=== PATIENT | female | born 1960 | race African-American/Black ===

== ENCOUNTER 2018-08-09 12:59 | Inpatient (IN) | payer OTHER ==
--- NOTE | 2018-08-09 14:04 | ED ---
Chest Pain HPI - General Chief Complaint: Chest Pain Stated Complaint: Chest pressure Time Seen by Provider: 08/09/18 13:33 Source: patient, RN notes reviewed, old records reviewed Mode of arrival: ambulatory Limitations: no limitations - History of Present Illness Initial Comments: This is a 57-year-old female the ER for evaluation presents again with today with chest pain. Positive history of CAD with stent placement. Patient states she has had persistent chest pain today and the chest pain is been on and off for 5 days. Patient's chest pain is persisted. Patient has history of CAD. Currently patient is recent travel history no sick contacts no cough or congestion. She does have similar pain to prior heart disease. No recent cardiac evaluation. MD Complaint: chest pain -: days(s) (5) Pain Location: left chest Pain Radiation: LUE Severity: mild Severity scale (1-10): 2 Quality: aching Consistency: constant Improves With: nothing Worsens With: nothing Anginal Symptoms: diaphoresis, dyspnea Treatments Prior to Arrival: none - Related Data Home Medications Medication Instructions Recorded Confirmed Aspirin EC [Ecotrin Low Dose] 81 mg PO DAILY 08/09/18 08/09/18 Atorvastatin [Lipitor] 80 mg PO DAILY 08/09/18 08/09/18 Losartan Potassium 100 mg PO DAILY 08/09/18 08/09/18 Previous Rx's Medication Instructions Recorded amLODIPine [Norvasc] 5 mg PO DAILY #30 tab 04/10/15 Allergies Allergy/AdvReac Type Severity Reaction Status Date / Time No Known Allergies Allergy Verified 08/09/18 13:43 Review of Systems ROS Statement: Those systems with pertinent positive or pertinent negative responses have been documented in the HPI. ROS Other: All systems not noted in ROS Statement are negative. EKG Findings - EKG Comments: EKG Findings:: EKG shows sinus bradycardia rate of 53, HI 160, QRS 76, QTc 388 Past Medical History Past Medical History: Coronary Artery Disease (CAD), Chest Pain / Angina, COPD, Hyperlipidemia, Hypertension, Myocardial Infarction ([place]) Last Myocardial Infarction Date:: 03/2015 History of Any Multi-Drug Resistant Organisms: None Reported Past Surgical History: Heart Catheterization With Stent, Tubal Ligation Additional Past Surgical History / Comment(s): Tubes tied, 1 cardiac stent is 2003, and R ankle FX Past Anesthesia/Blood Transfusion Reactions: No Reported Reaction Past Psychological History: No Psychological Hx Reported Smoking Status: Current every day smoker Past Alcohol Use History: None Reported, Occasional Past Drug Use History: Cocaine - Past Family History Father History Unknown: Yes Family Medical History: No Reported History, Unable to Obtain (Patient denies anything about her father) Mother Family Medical History: COPD, Hypertension, Osteoarthritis (OA) Daughter(s) Family Medical History: No Reported History (Patient had one daughter no major Problems.) General Exam Limitations: no limitations General appearance: alert, in no apparent distress Head exam: Present: atraumatic, normocephalic, normal inspection Eye exam: Present: normal appearance, PERRL, EOMI. Absent: scleral icterus, conjunctival injection, periorbital swelling ENT exam: Present: normal exam, mucous membranes moist Neck exam: Present: normal inspection. Absent: tenderness, meningismus, lymphadenopathy Respiratory exam: Present: normal lung sounds bilaterally. Absent: respiratory distress, wheezes, rales, rhonchi, stridor Cardiovascular Exam: Present: regular rate, normal rhythm, normal heart sounds. Absent: systolic murmur, diastolic murmur, rubs, gallop, clicks GI/Abdominal exam: Present: soft, normal bowel sounds. Absent: distended, tenderness, guarding, rebound, rigid Extremities exam: Present: normal inspection, full ROM, normal capillary refill. Absent: tenderness, pedal edema, joint swelling, calf tenderness Back exam: Present: normal inspection Neurological exam: Present: alert, oriented X3, CN II-XII intact Psychiatric exam: Present: normal affect, normal mood Skin exam: Present: warm, dry, intact, normal color. Absent: rash Course Vital Signs 08/09/18 13:07 Temperature 98.2 F Pulse Rate 62 Respiratory 18 Rate Blood Pressure 129/74 O2 Sat by Pulse 99 Oximetry - Reevaluation(s) Reevaluation #1: 08/09/18 15:44 Medical record is reviewed Reevaluation #2: 08/09/18 15:44 Patient does have persistent chest pain Chest Pain MDM - MDM 57 female the ER for evaluation positive chest pain positive CAD history. Patient be admitted for persistent cardiac evaluation. Critical Care Time Critical Care Time: Yes Total Critical Care Time: 31 Disposition Clinical Impression: Chest pain Disposition: ADMITTED IP TO THIS HOSP Condition: Undetermined Is patient prescribed a controlled substance at d/c from ED?: No Referrals: Gilbert Mann MD [Primary Care Provider] - 1-2 days
[2018-08-09 14:18] LABS: Basophils % (A) 1 %; Eosinophils # (A) 0.3 k/uL (0-0.7); Eosinophils % (A) 6 %; HGB 12.7 gm/dL (11.4-16.0); Lymphocytes # (A) 2.5 k/uL (1.0-4.8); Lymphocytes % (A) 46 %; MCH 29.7 pg (25.0-35.0); MCHC 32.6 g/dL (31.0-37.0); MCV 91.1 fL (80.0-100.0); Mean Platelet Volume 6.5; Monocytes # (A) 0.3 k/uL (0-1.0); Monocytes % (A) 6 %; Neutrophils # (A) 2.1 k/uL (1.3-7.7); Neutrophils % (A) 39 %; Platelet Count 338 k/uL (150-450); RBC 4.28 m/uL (3.80-5.40); RDW 13.6 % (11.5-15.5); WBC 5.3 k/uL (3.8-10.6)
--- NOTE | 2018-08-09 14:31 | XR ---
EXAMINATION TYPE: XR chest 2V DATE OF EXAM: 08/09/2018 COMPARISON: NONE TECHNIQUE: PA and lateral views submitted. HISTORY: Chest pain FINDINGS: The lungs are clear and there is no pneumothorax, pleural effusion, or focal pneumonia. Arthropathy of the AC joints. Hypertrophic and degenerative change of the spine. Atherosclerotic change of the a ashlee. IMPRESSION: 1. No acute process.
[2018-08-09 14:35] LABS: ALT 29 U/L (9-52); AST 24 U/L (14-36); Albumin 4.4 g/dL (3.5-5.0); Alkaline Phosphatase 76 U/L (38-126); Anion Gap 6 mmol/L; Blood Urea Nitrogen 12 mg/dL (7-17); Calcium 9.8 mg/dL (8.4-10.2); Carbon Dioxide 27 mmol/L (22-30); Chloride 108 mmol/L (98-107); Glucose 96 mg/dL (74-99); Lipase 249 U/L (23-300); Magnesium 1.9 mg/dL (1.6-2.3); Potassium 4.5 mmol/L (3.5-5.1); Sodium 141 mmol/L (137-145); Total Bilirubin 0.3 mg/dL (0.2-1.3); Total Protein 7.8 g/dL (6.3-8.2)
[2018-08-09 14:38] LABS: INR 0.9 (<1.2); Partial Thromboplastin Time 24.7 sec (22.0-30.0); Prothrombin Time 10.2 sec (9.0-12.0)
[2018-08-09] MEDS ORDERED: HEPARIN SODIUM,PORCINE 5,000 UNIT/ML 1 ML VIAL IV PRN (17:26)
[2018-08-09] MEDS ORDERED: NITROGLYCERIN SL TABS 0.4 MG TAB SUBLINGUAL PRN (17:26)
[2018-08-09] MEDS ORDERED: ASPIRIN 81 MG PO STA (17:26)
[2018-08-09] MEDS ORDERED: HEPARIN SODIUM,PORCINE 5,000 UNIT/ML 1 ML VIAL IV ONE (17:26)
[2018-08-09] MEDS: HEPARIN SOD,PORK IN 0.45% NACL 25,000 UNIT in 0.45% NACL 1 250ML.BAG IV SCH (17:48)
[2018-08-09] MEDS: METOPROLOL TARTRATE 25 MG TAB PO SCH (20:02)
[2018-08-10 08:30] LABS: Mean Platelet Volume 7.1; Platelet Count 306 k/uL (150-450)
[2018-08-10 08:54] LABS: Cholesterol 165 mg/dL (<200); HDL Cholesterol 67 mg/dL (40-60); LDL Cholesterol,Calculated 87 mg/dL (0-99); Triglycerides 56 mg/dL (<150)
[2018-08-10] MEDS ORDERED: ASPIRIN 325 MG TAB PO SCH (09:00)
[2018-08-10] MEDS ORDERED: ATORVASTATIN 80 MG TAB PO SCH (09:00)
[2018-08-10] MEDS ORDERED: SODIUM CHLORIDE 0.9% 1,000 ML in EMPTY BAG 1 BAG IV ONE (09:37)
[2018-08-10] MEDS ORDERED: ALPRAZolam 0.25 MG TAB PO PRN (09:37)
--- NOTE | 2018-08-10 09:51 | P.CRDCN ---
History of Present Illness History of present illness: This is a pleasant 57-year-old -[place] female past medical history significant for coronary artery disease status post multiple angioplasties, hypertension, dyslipidemia and chronic nicotine dependence. She follows in the office with Dr. Hastings. We have asked to see her in consultation for symptoms of chest discomfort. She states since last week she has been feeling chest pain. 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 There was no radiation to the arm, back or jaw. She felt mildly short of breath as well. These symptoms were off an on intermittently since . They seem to come at rest but mostly at the end of a long day of work. Most recent catheterization performed 2014 performed in the setting of a non-STEMI reveals left main coronary artery patent with no obstructive disease, LAD with eccentric ostial stenosis about 85%, circumflex small and nondominant with no disease, RCA diffuse disease with stenosis noted in the midportion 70%. At that time she underwent successful angioplasty of the RCA and LAD per Dr. Dotson. EKG on admission reveals sinus bradycardia heart rate 53 with no acute changes. Nonspecific abnormalities noted. Chest x-ray is negative for an acute cardiopulmonary process. Laboratory data reviewed, WBC 5.3, hemoglobin 12.7, platelets 306, sodium 141, potassium 4.5, creatinine 0.63, magnesium 1.9, cardiac enzymes negative 3, LDL 87, HDL 67 and and he proBNP 53. Current cardiac medications include atorvastatin 80 mg daily, amlodipine 5 mg daily, aspirin 81 mg daily and losartan 100 mg daily. Most recent echocardiogram obtained in the office March 2018 reveals preserved left ventricular systolic function with ejection fraction 55%, mild concentric left ventricular hypertrophy. At the time of my exam: CONSTITUTIONAL: Denies fever. Denies chills. EYES: Denies blurred vision. Denies vision changes. Denies eye pain. EARS, NOSE, MOUTH & THROAT: Denies headache. Denies sore throat. Denies ear pain. CARDIOVASCULAR: Denies chest pain. Denies shortness of breath. Denies orthopnea. Denies PND. Denies palpitations. RESPIRATORY: Denies cough. GASTROINTESTINAL: Denies abdominal pain. Denies diarrhea. Denies constipation. Denies nausea. Denies vomiting. MUSCULOSKELETAL: Denies myalgias. INTEGUMENTARY: Denies pruitis. Denies rash. NEUROLOGIC: Denies numbness. Denies tingling. Denies weakness. PSYCHIATRIC: Denies anxiety. Denies depression. ENDOCRINE: Denies fatigue. Denies weight change. Denies polydipsia. Denies polyurina. GENITOURINARY: Denies burning, hematuria or urgency with micturation. HEMATOLOGIC: Denies history of anemia. Denies bleeding. Blood pressure 131/63 heart rate 52 afebrile maintaining oxygen saturation on room air GENERAL: This is a 57-year-old -[place] female in no apparent distress at the time of my examination. HEENT: Head is atraumatic, normocephalic. Pupils are equal, round. Sclerae anicteric. Conjunctivae are clear. Mucous membranes of the mouth are moist. Neck is supple. There is no jugular venous distention. No carotid bruit is heard. LUNGS: Clear to auscultation no wheezes, rales or rhonchi. No chest wall tenderness is noted on palpation or with deep breathing. HEART: Regular rate and rhythm without murmurs, rubs or gallops. S1 and S2 heard. ABDOMEN: Soft, nontender. Bowel sounds are heard. No organomegaly noted. EXTREMITIES: No evidence of peripheral edema and no calf tenderness noted. VASCULAR: Radial and dorsalis pedis pulses palpated, no evidence of clubbing. NEUROLOGIC: Patient is awake, alert and oriented x3. ASSESSMENT Unstable angina suggestive of progression of coronary artery disease Hypertension Dyslipidemia History of coronary artery disease status post multiple angioplasties Chronic nicotine dependence PLAN An acute coronary event has been ruled out however symptoms are suggestive of angina. Recommend proceeding with cardiac catheterization to further assess for progression of coronary artery disease. I have discussed the risks, benefits and alternative therapies for the above-mentioned procedure and for both sedation/analgesia as well as necessary blood product administration, if indicated, as they pertain to this patient. The patient has indicated understanding and acceptance of the risks and procedures discussed. Questions have been answered appropriately and she is agreeable to move forward with the above-stated procedure. Resume atorvastatin 80 mg daily, amlodipine 5 mg daily and losartan 100 mg daily. Continue heparin infusion until tomorrow prior to cardiac catheterization. Smoking cessation recommended, patient states she has cut back significantly. Further recommendations to follow based upon clinical course. Thank you kindly for this consultation. Nurse Practitioner note has been reviewed, I agree with a documented findings and plan of care. Patient was seen and examined. Past Medical History Past Medical History: Coronary Artery Disease (CAD), Chest Pain / Angina, COPD, Hyperlipidemia, Hypertension, Myocardial Infarction ([place]) Last Myocardial Infarction Date:: 03/2015 History of Any Multi-Drug Resistant Organisms: None Reported Past Surgical History: Heart Catheterization With Stent, Tubal Ligation Additional Past Surgical History / Comment(s): Tubes tied, 4 cardiac stent is 2003, and R ankle FX Past Anesthesia/Blood Transfusion Reactions: No Reported Reaction Date of Last Stent Placement:: unk Past Psychological History: No Psychological Hx Reported Smoking Status: Current some day smoker Past Alcohol Use History: None Reported, Occasional Past Drug Use History: Cocaine - Past Family History Father History Unknown: Yes Family Medical History: No Reported History, Unable to Obtain Mother Family Medical History: COPD, Hypertension, Osteoarthritis (OA) Daughter(s) Family Medical History: No Reported History Medications and Allergies Home Medications Medication Instructions Recorded Confirmed Type amLODIPine [Norvasc] 5 mg PO DAILY #30 tab 04/10/15 08/09/18 Rx Aspirin EC [Ecotrin Low Dose] 81 mg PO DAILY 08/09/18 08/09/18 History Atorvastatin [Lipitor] 80 mg PO DAILY 08/09/18 08/09/18 History Losartan Potassium 100 mg PO DAILY 08/09/18 08/09/18 History Allergies Allergy/AdvReac Type Severity Reaction Status Date / Time No Known Allergies Allergy Verified 08/09/18 13:43 Physical Exam Vitals: Vital Signs Temp Pulse Pulse Resp BP BP Pulse Ox 08/10/18 08:00 52 L 18 08/10/18 07:25 98 08/10/18 07:18 98.1 F 52 L 18 131/63 100 08/10/18 03:56 97.9 F 49 L 16 127/61 99 08/10/18 03:19 16 08/09/18 23:58 16 08/09/18 23:08 98.5 F 45 L 16 128/61 99 08/09/18 20:00 18 08/09/18 18:34 97.9 F 54 L 18 161/82 100 08/09/18 17:53 98.1 F 60 19 160/86 100 08/09/18 13:07 98.2 F 62 18 129/74 99 Intake and Output 08/09/18 08/10/18 08/10/18 22:59 06:59 14:59 Intake Total 62.857 Balance 62.857 Intake: Intake, IV Titration 62.857 Amount Heparin Sod,Pork in 0.45% 62.857 NaCl 25,000 unit In 0.45 % NaCl 1 250ml.bag @ 12 UNITS/KG/HR 7.89 mls/hr IV .Q24H [facility] Rx#: [id number] Other: Voiding Method Toilet # Voids 1 Results 08/10/18 08:02 08/09/18 13:50 Cardiac Enzymes 08/09/18 08/09/18 08/09/18 Range/Units 13:50 13:50 19:26 AST 24 (14-36) U/L Troponin I 0.018 0.015 (0.000-0.034) ng/mL 08/10/18 Range/Units 01:19 AST (14-36) U/L Troponin I <0.012 (0.000-0.034) ng/mL Coagulation 08/09/18 08/10/18 08/10/18 Range/Units 13:50 00:44 08:02 PT 10.2 (9.0-12.0) sec APTT 24.7 76.2 H 53.9 H (22.0-30.0) sec Lipids 08/10/18 Range/Units 08:02 Triglycerides 56 (<150) mg/dL Cholesterol 165 (<200) mg/dL HDL Cholesterol 67 H (40-60) mg/dL CBC 08/09/18 08/10/18 Range/Units 13:50 08:02 WBC 5.3 (3.8-10.6) k/uL RBC 4.28 (3.80-5.40) m/uL Hgb 12.7 (11.4-16.0) gm/dL Hct 39.0 (34.0-46.0) % Plt Count 338 306 (150-450) k/uL Comprehensive Metabolic Panel 08/09/18 Range/Units 13:50 Sodium 141 (137-145) mmol/L Potassium 4.5 (3.5-5.1) mmol/L Chloride 108 H (98-107) mmol/L Carbon Dioxide 27 (22-30) mmol/L BUN 12 (7-17) mg/dL Creatinine 0.63 (0.52-1.04) mg/dL Glucose 96 (74-99) mg/dL Calcium 9.8 (8.4-10.2) mg/dL AST 24 (14-36) U/L ALT 29 (9-52) U/L Alkaline Phosphatase 76 (38-126) U/L Total Protein 7.8 (6.3-8.2) g/dL Albumin 4.4 (3.5-5.0) g/dL Current Medications Generic Name Dose Route Start Last Admin Trade Name Freq PRN Reason Stop Dose Admin Aspirin 325 mg 08/10/18 09:00 Aspirin PO DAILY [facility] Atorvastatin Calcium 80 mg 08/10/18 09:00 Lipitor PO DAILY [facility] Heparin Sodium (Porcine) 0 unit 08/09/18 17:26 Heparin IV Q6HR PRN Low PTT Protocol Heparin Sodium/Sodium Chloride 250 mls @ 7.89 mls/hr 08/09/18 17:30 08/10/18 01:46 25,000 unit/ Sodium Chloride IV 10 units/kg/hr .Q24H [facility] 6.57 mls/hr Titration Protocol 12 UNITS/KG/HR Metoprolol Tartrate 25 mg 08/09/18 21:00 08/09/18 20:02 Lopressor PO 25 mg BID [facility] Administration Nitroglycerin 0.4 mg 08/09/18 17:26 Nitrostat SUBLINGUAL Q5M PRN Chest Pain Intake and Output 08/09/18 08/10/18 08/10/18 22:59 06:59 14:59 Intake Total 62.857 Balance 62.857 Intake: Intake, IV Titration 62.857 Amount Heparin Sod,Pork in 0.45% 62.857 NaCl 25,000 unit In 0.45 % NaCl 1 250ml.bag @ 12 UNITS/KG/HR 7.89 mls/hr IV .Q24H [facility] Rx#: [id number] Other: Voiding Method Toilet # Voids 1 08/10/18 08:02 08/09/18 13:50
[2018-08-10] MEDS: METOPROLOL TARTRATE 25 MG TAB PO SCH (09:53)
[2018-08-10] MEDS: LOSARTAN 50 MG TAB PO SCH (09:56)
[2018-08-10] MEDS: ATORVASTATIN 80 MG TAB PO SCH (09:56)
[2018-08-10] MEDS: amLODIPine 5 MG TAB PO SCH (09:56)
[2018-08-10] MEDS: HEPARIN SOD,PORK IN 0.45% NACL 25,000 UNIT in 0.45% NACL 1 250ML.BAG IV SCH (16:52)
--- NOTE | 2018-08-10 17:26 | HP ---
HISTORY AND PHYSICAL CHIEF COMPLAINT: [id number] -Stateless female with history of coronary artery disease, multiple angioplasties, hypertension, dyslipidemia, nicotine addiction, came into the hospital with chest pain radiating up to her neck and shoulder, similar to the pressure she has had before with similar heart pain in the past when she had angioplasties. Her last heart catheterization was in 2014. She had RCA stenosis back then and she had angioplasty back then. EKG showed no ST-T changes. Heart rate 53. Chest x-ray is negative. Labs show hemoglobin 12.7, sodium 141, potassium 4.5, creatinine 0.63. Cardiac enzymes are negative. BNP was negative. Echo from March 2018 showed ejection fraction of 55%. REVIEW OF SYSTEMS: Fourteen-point review of systems negative except for mentioned in HPI. PHYSICAL EXAMINATION: VITAL SIGNS: Blood pressure 130s over 50s, heart rate 50s to 60, oxygen saturations good on room air. GENERAL: -Stateless female in no acute distress. HEENT: Normocephalic, atraumatic. Pupils equal, round, reactive. LUNGS: Clear. CARDIOVASCULAR: S1, S2. No chest wall tenderness. ABDOMEN: Soft, nontender. VASCULAR: Normal dorsalis pedis, radial pulse. PSYCH: Fair mood and affect. NEUROLOGIC: Alert and oriented x3. ASSESSMENT: 1. Atypical chest pain. 2. Hypertension. 3. Dyslipidemia. Await cardiac consult. Possible angioplasty, heart catheterization versus stress test will be done. MMODL / IJN: [id number] /
[2018-08-11] MEDS: LOSARTAN 50 MG TAB PO SCH (06:16)
[2018-08-11] MEDS: ATORVASTATIN 80 MG TAB PO SCH (06:16)
[2018-08-11] MEDS: amLODIPine 5 MG TAB PO SCH (06:17)
[2018-08-11] MEDS: ASPIRIN 81 MG PO SCH (06:17)
[2018-08-11 07:45] LABS: Platelet Count 300 k/uL (150-450)
[2018-08-11] MEDS ORDERED: NON-FORMULARY DRUG (Losartan Potassium [Losartan Potassium] 100 MG) PO SCH (09:00)
[2018-08-11] MEDS ORDERED: IV FLUID CONTINUATION 1,000 ML IV ONE (14:40)
[2018-08-11] MEDS ORDERED: fentaNYL (PF) 50 MCG/ML 2 ML AMP ONE (14:42)
[2018-08-11] MEDS ORDERED: LIDOCAINE 1% INJ 10MG/ML (20 ML MDV) ONE (14:42)
[2018-08-11] MEDS ORDERED: MIDAZOLAM 2 MG/2 ML VIAL IV ONE (14:45)
[2018-08-11] MEDS ORDERED: fentaNYL (PF) 50 MCG/ML 2 ML AMP IV ONE (14:45)
[2018-08-11] MEDS ORDERED: LIDOCAINE 1% INJ 10MG/ML (20 ML MDV) SQ ONE (14:51)
[2018-08-11] MEDS ORDERED: NITROGLYCERIN 1000MCG/10ML SYRINGE INTRACORON ONE (15:07)
[2018-08-11] MEDS ORDERED: BIVALIRUDIN BOLUS 250 MG/50 ML IV ONE (15:17)
[2018-08-11] MEDS ORDERED: TICAGRELOR 90 MG TAB ONE (15:18)
[2018-08-11] MEDS ORDERED: BIVALIRUDIN 250 MG in SODIUM CHLORIDE 0.9% 50 ML IV ONE (15:19)
[2018-08-11] MEDS ORDERED: TICAGRELOR 90 MG TAB PO ONE (15:20)
--- NOTE | 2018-08-11 15:27 | PN ---
PROGRESS NOTE SUBJECTIVE: This is a 57-year-old female who was admitted with diabetes mellitus, hypertension, dyslipidemia, uncontrolled chest pain similar to heart pain. She is awaiting for cardiac catheterization today. If cardiac catheterization comes back normal, she will possibly be discharged. She has had negative troponin. Her cholesterol is reviewed with her. CARDIOVASCULAR: S1, S2. Lungs are clear. GI: Soft. HEMATOLOGY: Negative Homans. ASSESSMENT: Atypical chest pain, rule out myocardial infarction. Most of her chest pain is resolved with a cardiac catheterization and discharge if normal. MMODL / IJN: [id number] /
[2018-08-11] MEDS ORDERED: IOPAMIDOL-370 150ML BTL INJ ONE (15:34)
[2018-08-11] MEDS ORDERED: RX INFO: IV CONTRAST WAS GIVEN 1 EACH MISC MISCELLANE PRN (15:43)
[2018-08-11] MEDS ORDERED: ATROPINE SULFATE 0.1 MG/ML 10ML SYRINGE IV PRN (15:43)
[2018-08-11] MEDS ORDERED: MAG HYDROX/AL HYDROX/SIMETH 30 ML CUP PO PRN (15:43)
[2018-08-11] MEDS ORDERED: NITROGLYCERIN SL TABS 0.4 MG TAB SUBLINGUAL PRN (15:43)
[2018-08-11] MEDS ORDERED: ZOLPIDEM 5 MG TAB PO PRN (15:43)
[2018-08-11] MEDS ORDERED: SODIUM CHLORIDE 0.9% 1,000 ML IV SCH (15:45)
--- NOTE | 2018-08-11 18:15 | PTCA ---
PERCUTANEOUSTRANS CORORONARY ANGIOGRAPHY DATE OF SERVICE: 08/11/2018 PERFORMING PHYSICIAN: Tin Dotson MD, rehabilitation center manager. PROCEDURE PERFORMED: Successful stenting of the proximal right coronary artery using 3.25 x 18 mm Xience drug-eluting stent with reduction of stenosis from 70% to 0%. INDICATION: This is a pleasant 57-year-old female patient with past medical history significant for coronary artery disease and prior stenting of the right coronary artery, prior stenting of the RCA and LAD, as well as significant history of smoking, still continues to smoke. She presented to the hospital with chest discomfort which was quite concerning for angina. Because of that, heart catheterization was advised. The patient underwent heart catheterization by Dr. Dereck Botello and that was revealed patent stent in the LAD with severe disease involving the proximal right coronary artery. Because of that PCI was advised. APPROACH: Right common femoral artery. COMPLICATION: None. LEVEL OF SEDATION: Moderate with sedation length of 20 minutes. PROCEDURE DESCRIPTION: Please refer to diagnostic heart catheterization was performed by Dr. Dereck Botello. The RCA was engaged using Luis Daniel Cervantes catheter. After that, I did wire using a run- through wire. I did direct stenting of the lesion using 3.25 x 18 mm Xience drug- eluting stent where the stent was positioned under fluoroscopy guidance and deployed under 16 atmospheres for 20 seconds with the following angiogram showing good angiographic results and the procedure was completed without any complication. POSTPROCEDURE MANAGEMENT: 1. Dual anti-platelet therapy. 2. Risk factors modifications. 3. Follow up with the patient. MMODL / IJN: [id number] /
--- NOTE | 2018-08-11 18:18 | LTR ---
DATE OF SERVICE: August 11, [address] Mann: Ms. Evelia Rodrigues underwent successful stenting of the right coronary artery with good angiographic results and without any complication. I want to thank you for allowing us to participate in her care and please do not hesitate to call if you have any questions or concerns. MMODL / IJN: [id number] /
[2018-08-11] MEDS ORDERED: HYDROmorphone 0.5 MG/0.5 ML SYRINGE IVP STA (18:43)
--- NOTE | 2018-08-11 18:51 | CC ---
CARDIAC CATHETERIZATION REPORT Mrs. Rodrigues is status post prior [id number] myocardial infarction with stent to the ostial LAD and the right coronary artery. The patient came with intermittent chest pain suggestive of unstable angina syndrome. In view of that, patient was recommended to have a cardiac catheterization for definitive diagnosis. The right femoral artery was entered using ultrasound guidance, and the micropuncture needle and a #6 [place] sheath was placed in. Selective coronary angiography was then performed in multiple projections. Left ventricular pressures were obtained. Patient tolerated the procedure well. Moderate sedation was used. Total sedation time was 22 minutes. The left main coronary artery is normal and patent. LAD is a good-caliber blood vessel and the ostial LAD is patent at the site of the prior stent placement. Circumflex coronary artery is a good-caliber blood vessel. There is a small-sized obtuse marginal branch which has a 70% very proximal stenosis. The right coronary artery is a good- caliber blood vessel and there is 80% stenosis just prior to the stent in the proximal right coronary artery. Distal right coronary artery prior to his bifurcation into the PDA and PLV branches has about 50% to 60% stenosis. RECOMMENDATIONS: Films were reviewed with Dr. Dotson. We will proceed with a stent to the RCA. Continue to treat medically the distal RCA and OM lesion. MMODL / IJN: [id number] /
[2018-08-11] MEDS: HEPARIN SOD,PORK IN 0.45% NACL 25,000 UNIT in 0.45% NACL 1 250ML.BAG IV SCH (19:09)
[2018-08-11 20:18] LABS: Basophils % (A) 0 %; Eosinophils # (A) 0.1 k/uL (0-0.7); Eosinophils % (A) 1 %; HCT 36.2 % (34.0-46.0); Lymphocytes # (A) 1.4 k/uL (1.0-4.8); Lymphocytes % (A) 19 %; MCH 29.4 pg (25.0-35.0); MCHC 33.1 g/dL (31.0-37.0); Monocytes # (A) 0.3 k/uL (0-1.0); Monocytes % (A) 5 %; Neutrophils # (A) 5.6 k/uL (1.3-7.7); Neutrophils % (A) 75 %; Platelet Count 291 k/uL (150-450); RBC 4.06 m/uL (3.80-5.40); RDW 13.6 % (11.5-15.5); WBC 7.5 k/uL (3.8-10.6)
[2018-08-11] MEDS: ALPRAZolam 0.5 MG TAB PO PRN (23:15)
[2018-08-12 07:52] LABS: Mean Platelet Volume 7.1; Platelet Count 285 k/uL (150-450)
[2018-08-12] MEDS: LOSARTAN 50 MG TAB PO SCH (08:06)
[2018-08-12] MEDS: TICAGRELOR 90 MG TAB PO SCH ×2 (08:07→21:37)
[2018-08-12] MEDS: ASPIRIN 81 MG PO SCH (08:07)
[2018-08-12] MEDS: ATORVASTATIN 80 MG TAB PO SCH (08:07)
[2018-08-12] MEDS: amLODIPine 5 MG TAB PO SCH (08:07)
[2018-08-12 12:01] VITALS: BMI 25.0
--- NOTE | 2018-08-12 15:53 | P.PN ---
Subjective Progress Note Date: 08/12/18 This is a 57-year-old -[place] female who presented to the hospital with chest discomfort, she was taken to the cardiac catheterization lab yesterday where she underwent angioplasty and stenting of the RCA. Patient did have a mild hematoma through the night last night, this morning her groin looks fine, no evidence of any hematoma, no bruit. Blood pressure 122/70 with a heart rate in the 60s, 100% on room air. CBC is normal. Objective - Vital Signs Vital signs: Vital Signs Temp 98.1 F 08/12/18 08:00 Pulse 65 08/12/18 12:00 Resp 16 08/12/18 12:00 BP 123/70 08/12/18 12:00 Pulse Ox 100 08/12/18 12:00 Intake & Output 08/11/18 08/12/18 08/12/18 18:59 06:59 18:59 Intake Total 124 500 600 Output Total 150 400 Balance 124 350 200 Weight 66.2 kg 66.2 kg Intake: IV 124 Intake, IV Titration 500 Amount Sodium Chloride 0.9% 1, 500 000 ml @ 100 mls/hr IV . Q10H [facility] Rx#:[id number] Oral 600 Output: Urine 150 400 Other: Voiding Method Toilet Toilet Toilet # Voids 1 - Exam PHYSICAL EXAMINATION: GENERAL: 57-year-old -H[place]ian female in no acute distress at the time of my examination HEENT: Head is atraumatic, normocephalic. Pupils equal, round. Sclera anicteric. Conjunctiva are clear. Mucous membranes of the mouth are moist. Neck is supple. There is no elevated jugular venous pressure. No carotid bruit is heard. HEART EXAMINATION: Heart S1, S2 normal. No murmur or gallop heard. CHEST EXAMINATION: Lungs are clear to auscultation and precussion. No chest wall tenderness is noted on palpation or with deep breathing. ABDOMEN: Soft, nontender. Bowel sounds are heard. No organomegaly noted. EXTREMITIES: 2+ peripheral pulses with no evidence of peripheral edema and no calf tenderness noted. Right groin soft, no evidence of any hematoma. NEUROLOGIC patient is awake, alert and oriented ?-3. . - Labs CBC & Chem 7: 08/12/18 07:13 08/12/18 07:13 Assessment and Plan Plan: Assessment and plan #1 status post angioplasty and stenting of the right coronary artery #2 hypertension #3 hyperlipidemia #4 coronary artery disease with prior PCI's #5 nicotine dependence Plan Patient may be able to be discharged home today from cardiology's perspective. We'll make her a follow-up appointment to see Dr. VC Botello in the office post discharge. Patient will be discharged home on Norvasc 5 mg daily, Ecotrin 81 mg daily, Lipitor 80 mg daily, losartan 100 mg daily, Brilinta 90 mg twice a day and sublingual nitroglycerin as needed for chest pain. DNP note has been reviewed, I agree with a documented findings and plan of care. Patient was seen and examined.
[2018-08-12] MEDS: HEPARIN SOD,PORK IN 0.45% NACL 25,000 UNIT in 0.45% NACL 1 250ML.BAG IV SCH (19:58)
[2018-08-12] MEDS: ALPRAZolam 0.5 MG TAB PO PRN (21:37)
[2018-08-13] MEDS: amLODIPine 5 MG TAB PO SCH (08:13)
[2018-08-13] MEDS: ASPIRIN 81 MG PO SCH (08:13)
[2018-08-13] MEDS: TICAGRELOR 90 MG TAB PO SCH (08:13)
[2018-08-13] MEDS: LOSARTAN 50 MG TAB PO SCH (08:13)
[2018-08-13] MEDS: ATORVASTATIN 80 MG TAB PO SCH (08:13)
[2018-08-13 10:19] VITALS: RESP 18
[2018-08-13 11:57] VITALS: BP 143/77; PULSE 68; TEMP 98.3
--- NOTE | 2018-08-13 14:14 | P.PN ---
Subjective Progress Note Date: 08/13/18 This is a 57-year-old -[place] female who presented to the hospital with chest discomfort, she was taken to the cardiac catheterization lab yesterday where she underwent angioplasty and stenting of the RCA. Patient did have a mild hematoma through the night last night, this morning her groin looks fine, no evidence of any hematoma, no bruit. Blood pressure 122/70 with a heart rate in the 60s, 100% on room air. CBC is normal. 08/13/2018 Patient seen and examined this morning, overall doing well. Denies any chest pain or difficulty in breathing. She's been up ambulating without any difficulty. Objective - Vital Signs Vital signs: Vital Signs Temp 98.3 F 08/13/18 11:56 Pulse 68 08/13/18 11:58 Resp 18 08/13/18 11:58 BP 143/77 08/13/18 11:56 Pulse Ox 99 08/13/18 11:56 Intake & Output 08/12/18 08/13/18 08/13/18 18:59 06:59 18:59 Intake Total 840 600 Output Total 1000 Balance -160 600 Weight 66.2 kg 65.9 kg Intake: Oral 840 600 Output: Urine 1000 Other: Voiding Method Toilet Toilet Toilet # Voids 1 1 - Exam PHYSICAL EXAMINATION: GENERAL: 57-year-old -[place] female in no acute distress at the time of my examination HEENT: Head is atraumatic, normocephalic. Pupils equal, round. Sclera anicteric. Conjunctiva are clear. Mucous membranes of the mouth are moist. Neck is supple. There is no elevated jugular venous pressure. No carotid bruit is heard. HEART EXAMINATION: Heart S1, S2 normal. No murmur or gallop heard. CHEST EXAMINATION: Lungs are clear to auscultation and precussion. No chest wall tenderness is noted on palpation or with deep breathing. ABDOMEN: Soft, nontender. Bowel sounds are heard. No organomegaly noted. EXTREMITIES: 2+ peripheral pulses with no evidence of peripheral edema and no calf tenderness noted. Right groin soft, no evidence of any hematoma. NEUROLOGIC patient is awake, alert and oriented ?-3. . - Labs CBC & Chem 7: 08/12/18 07:13 08/12/18 07:13 Assessment and Plan Plan: Assessment and plan #1 status post angioplasty and stenting of the right coronary artery #2 hypertension #3 hyperlipidemia #4 coronary artery disease with prior PCI's #5 nicotine dependence Plan Patient may be able to be discharged home today from cardiology's perspective. We'll make her a follow-up appointment to see Dr. VC Botello in the office post discharge. Patient will be discharged home on Norvasc 5 mg daily, Ecotrin 81 mg daily, Lipitor 80 mg daily, losartan 100 mg daily, Brilinta 90 mg twice a day and sublingual nitroglycerin as needed for chest pain. DNP note has been reviewed, I agree with a documented findings and plan of care. Patient was seen and examined.
== END 2018-08-13 15:20 | disposition home or self-care (01) | DRG 247 ==
LOC: EC 12:59 → 1SOBS 17:26 → 3SCARD 08-11 15:18 → OBSVTOIN 08-12 14:31 → 3SCARD 08-13 15:31
PROVIDERS: ADMIT Family Medicine; ATTEND Family Medicine
PROC: B2111ZZ Fluoroscopy of Multiple Coronary Arteries using Low Osmolar Contrast (ICD-10-PCS; 2018-08-11)
PROC: B2151ZZ Fluoroscopy of Left Heart using Low Osmolar Contrast (ICD-10-PCS; 2018-08-11)
PROC: 027034Z Dilation of Coronary Artery, One Artery with Drug-eluting Intraluminal Device, Percutaneous Approach (ICD-10-PCS; principal; 2018-08-11 14:29)
PROC: 4A023N7 Measurement of Cardiac Sampling and Pressure, Left Heart, Percutaneous Approach (ICD-10-PCS; 2018-08-11 14:29)
DX: I25.110 Atherosclerotic heart disease of native coronary artery with unstable angina pectoris (principal); I11.9 Hypertensive heart disease without heart failure; R00.1 Bradycardia, unspecified; J44.9 Chronic obstructive pulmonary disease, unspecified; F17.200 Nicotine dependence, unspecified, uncomplicated; E11.9 Type 2 diabetes mellitus without complications; E78.5 Hyperlipidemia, unspecified; I25.2 Old myocardial infarction; Z71.6 Tobacco abuse counseling; Z79.82 Long term (current) use of aspirin; Z79.899 Other long term (current) drug therapy; Z98.51 Tubal ligation status; Z95.5 Presence of coronary angioplasty implant and graft; Z87.81 Personal history of (healed) traumatic fracture; Z82.5 Family history of asthma and other chronic lower respiratory diseases; Z82.49 Family history of ischemic heart disease and other diseases of the circulatory system; Z82.61 Family history of arthritis
CPT/HCPCS: 36415; 71046; 80053; 80061; 82565; 83690; 83735; 83880; 84484; 85025; 85049; 85379; 85610; 85730; 93005; 93458; 96374; 99291; C1874

== ENCOUNTER → 2019-03-01 | Outpatient (CLI) | payer OTHER ==
--- NOTE | 2019-03-01 14:12 | XR ---
Right knee HISTORY: Right knee pain 2 views of the right knee Bone mineralization, joint spaces are mildly reduced and alignment is maintained. No evident joint ef fusion. Spurring present at the patellofemoral joint greater than the medial. There are vascular calc ifications present. IMPRESSION: There is osteoarthritis.
--- NOTE | 2019-03-01 14:43 | XR ---
Left shoulder HISTORY: Left shoulder pain 2 views of left shoulder The distal acromion is downturned. Hypertrophic changes present at the acromioclavicular joint. Align ment and joint spaces, bone mineralization are normal. Left lung apex as visualized is normal. There is overlying artifact. IMPRESSION: Correlate for impingement. Acromioclavicular joint arthropathy. Shoulder MRI may be of be nefit.
== END | disposition home or self-care (01) ==
LOC: RADXRMAIN 10:09
PROVIDERS: ATTEND Family Medicine
DX: M19.012 Primary osteoarthritis, left shoulder (principal); M17.11 Unilateral primary osteoarthritis, right knee

== ENCOUNTER → 2021-03-22 | Outpatient (CLI) | payer MEDICARE ==
--- NOTE | 2021-03-27 10:23 | P.ARTDOP ---
Arterial Doppler LOWER EXTREMITY ARTERIAL DOPPLER: DATE OF SERVICE: 03/22/2021 Reason for study: Nocturnal restless left leg. Doppler waveforms: Multiphasic bilaterally throughout. Pulse volume recording: []. Pressure gradients: None. Ankle-brachial indices: Greater than 1 bilaterally. Toe brachial indices: 0.78 on the right, 0.78 on the left Impression: Normal study.
== END | disposition home or self-care (01) ==
LOC: RADUSWWP 13:10
PROVIDERS: ATTEND Family Medicine
DX: I73.9 Peripheral vascular disease, unspecified (principal); G25.81 Restless legs syndrome
CPT/HCPCS: 93922

== ENCOUNTER → 2023-07-14 | Outpatient (CLI) | payer MEDICARE ==
--- NOTE | 2023-07-14 14:37 | BD ---
EXAMINATION TYPE: Axial Bone Density DATE OF EXAM: 07/14/2023 CLINICAL HISTORY: 62 years old Female. ICD-10 CODE: Z78.0 MENOPAUSAL STATE Height: 63 Weight: 157.6 FRAX RISK QUESTIONS: Alcohol (3 or more units per day): no Family History (Parent hip fracture): no Glucocorticoids (More than 3mos): no (Ex: prednisone, prednisolone, methylprednisolone, dexamethasone, and hydrocortisone). History of Fracture in Adulthood: no Secondary Osteoporosis: 1. Type 1 Diabetes: no 2. Hyperthyroidism: no 3. Menopause before 45: no 4. Malnutrition: no 5. Chronic liver disease: no Rheumatoid Arthritis: no Current Tobacco Use: yes RISK FACTORS HISTORY OF: Surgery to Spine/Hip(right/left)/Wrist (right/left): no EXAM MEASUREMENTS: Bone mineral densitometry was performed using the [employer] System. Bone mineral density as measured about the Lumbar spine is: ----- L1-L4(G/cm2): 1.271 T Score Values are as follows: ----- L1: 0.7 ----- L2: 0.5 ----- L3: 1.4 ----- L4: 0.3 ----- L1-L4: 0.8 Z Score Values are as follows: ----- L1: 1.2 ----- L2: 0.9 ----- L3: 1.9 ----- L4: 0.8 ----- L1-L4: 1.2 Bone mineral density : baseline Bone mineral density about the R hip (g/cm2): 0.801 Bone mineral density about the L hip (g/cm2): 0.832 T Score values are as follows: -----R Neck: -1.9 -----L Neck: -1.6 -----R Total: -1.6 -----L Total: -1.4 Z Score values are as follows: -----R Neck: -1.6 -----L Neck: -1.3 -----R Total: -1.7 -----L Total: -1.5 Bone mineral density baseline: FRAX%s: The graph provided illustrates a 4.6% chance for a major osteoporotic fx and a 1.0% chance fo r the hips probability for fx in 10 years time. IMPRESSION: Osteopenia (T Score between -2.5 and -1). There is slightly increased risk of fracture and the patient may be considered for treatment. Re-Screen 2-5 years. NOTE: T-SCORE=SD OF THE YOUNG ADULT MEAN.
--- NOTE | 2023-07-16 08:36 | MM ---
Reason for Exam: Screening (asymptomatic). Patient History: Menarche at age 14. First Full-Term at age 22. Postmenopausal. Risk Values: Elisha 5 year model risk: 1.2%. NCI Lifetime model risk: 5.0%. Prior Study Comparison: No prior studies available for comparison. Tissue Density: There are scattered fibroglandular densities. Findings: Analyzed By CAD. There is no suspicious group of microcalcifications or new suspicious mass. Overall Assessment: Negative, BI-RAD 1 Management: Screening Mammogram of both breasts in [address] [facility] will attempt to contact patient to return for supplemental views and ultrasound if indicated. Patient should continue monthly self-breast exams. A clinical breast exam by your physician is recommended on an annual basis. This exam should not preclude additional follow-up of suspicious palpable abnormalities. Note on Elisha scores and lifetime risk: 1. A Elisha score greater than 3% is considered moderate risk. If this is the case, consider specialist referral to assess eligibility for a risk reducing agent. 2. If overall lifetime risk for the development of breast cancer is 20% or higher, the patient may qualify for future screening with alternating mammogram and breast MRI. Electronically signed and approved by: Alexsander Hewitt DO
== END | disposition home or self-care (01) ==
LOC: RADMAMWWP 12:33
PROVIDERS: ATTEND Family Medicine
DX: Z12.31 Encounter for screening mammogram for malignant neoplasm of breast (principal); M85.89 Other specified disorders of bone density and structure, multiple sites; Z78.0 Asymptomatic menopausal state
CPT/HCPCS: 77063; 77067; 77080

== ENCOUNTER → 2024-01-12 | Outpatient (CLI) | payer MEDICARE | LOC: CPPFTMAIN 13:48 | PROVIDERS: ATTEND Pediatrics | DX: Z12.2 Encounter for screening for malignant neoplasm of respiratory organs (principal); R06.00 Dyspnea, unspecified; F17.200 Nicotine dependence, unspecified, uncomplicated | CPT/HCPCS: 94060; 94726; 94729 ==

== ENCOUNTER → 2024-01-13 | Outpatient (CLI) | payer MEDICARE ==
--- NOTE | 2024-01-13 15:51 | CTL ---
EXAMINATION TYPE: CT Low Dose Lung DATE OF EXAM ORDERED: 01/13/2024 HISTORY: 63-year-old female Z12.2,F17.210 NICOTINE DEPENDENCE. Lung cancer screening CT DLP: 81.[address] CTDI: 2.2 mGy Automated exposure control for dose reduction was used. SCREENING VISIT: Baseline COMPARISON: None TECHNIQUE: Low dose computed tomography scan was performed through the chest at 1 mm thick sections a nd reconstructed images in multiple planes at 1 mm and [address] DIAGNOSTIC QUALITY: Satisfactory FINDINGS: Heart normal size without pericardial. Intensive LAD and RCA coronary calcifications are present. Mild atherosclerotic arch calcifications within the chart. Branching anatomy. No thoracic lymphadenopathy by CT size criteria. Mild to moderate emphysematous change. No consolidation or pleural effusion. There is strandy atelect asis or scarring in the lower lungs. No suspicious greater than 4 mm pulmonary nodule is identified. A few scattered calcified granulomas are noted on the right. Tiny hiatal hernia. There is a 1.5 cm cyst anterior mid liver. Visualized upper abdomen otherwise crissy ws no gross abnormality. Bones: Scattered mild degenerative disc disease. IMPRESSION: 1. LungRADS 2, benign. A few small calcified granulomas in the right lung. No suspicious pulmonary no dule. 2. COPD with mild to moderate emphysema. CT LUNG RAD AND CT CHEST RECOMMENDATION: Lung-Rad 2 Benign Appearance or Behavior: Continue annual sc reening with LDCT in 12 months. S Modifier (other clinically significant findings): None
== END | disposition home or self-care (01) ==
LOC: RADCTMAIN 13:00
PROVIDERS: ATTEND Pediatrics
DX: Z12.2 Encounter for screening for malignant neoplasm of respiratory organs (principal); J43.9 Emphysema, unspecified; J84.10 Pulmonary fibrosis, unspecified; F17.210 Nicotine dependence, cigarettes, uncomplicated
CPT/HCPCS: 71271